=== PATIENT | male | born 1995 | race Hispanic/Latino ===

== ENCOUNTER 2019-11-08 22:25 | Inpatient (IN) | payer SELFPAY ==
[~2019-11-08] VITALS: Ht 167.6 cm; Wt 70.3 kg
[2019-11-08] MEDS ORDERED: ONDANSETRON HCL 4 MG/2 ML VIAL ONE (22:43)
[2019-11-08] MEDS ORDERED: KETOROLAC TROMETHAMINE 30MG/ML ONE (22:43)
[2019-11-08 22:56] LABS: BASOPHILS % (AUTO) 0.2 % (0.0-5.0); EOSINOPHILS % (AUTO) 1.6 % (0.0-8.0); HEMATOCRIT 44.9 % (42-54); MEAN CORPUSCULAR HEMOGLOBIN 30.3 pg (27.0-33.0); MEAN CORPUSCULAR VOLUME 86.7 fL (79-99); MONOCYTES % (AUTO) 11.2 % (3.0-13.0); NEUTROPHILS % (AUTO) 76.8 % (40.0-77.0); PLATELET COUNT (AUTO) 238 K/uL (130-400); RED BLOOD CELL COUNT(AUTO) 5.18 MIL/uL (4.50-6.20); RED CELL DISTRIBUTION WIDTH 11.9 % (11.0-15.5); WHITE BLOOD COUNT (AUTO) 12.9 K/uL (4.8-10.8)
[2019-11-08 23:07] LABS: APPEARANCE,URINE Clear (CLEAR); BILIRUBIN,URINE Negative (NEGATIVE); COLOR,URINE Yellow (YELLOW); GLUCOSE, URINE (UA) 250 mg/dL (NEGATIVE); KETONES,URINE 40 mg/dL (NEGATIVE); LEUKOCYTE ESTERASE ,URINE Trace (NEGATIVE); NITRATE,URINE Negative (NEGATIVE); OCCULT BLOOD,URINE Negative (NEGATIVE); PROTEIN,URINE POS 1+ mg/dL (NEGATIVE)
[2019-11-08 23:07] LABS: CREATININE 1.2 mg/dL (0.5-1.5); POTASSIUM 3.2 mmol/L (3.5-5.1)
[2019-11-08] MEDS ORDERED: MORPHINE SULFATE 4 MG/1ML SYG ONE (23:11)
[2019-11-08 23:12] LABS: ALBUMIN 4.5 g/dL (3.5-5.0); BILIRUBIN,TOTAL 0.9 mg/dL (0.2-1.0); TOTAL PROTEIN, SERUM 8.6 g/dL (6.0-8.3)
[2019-11-08] MEDS ORDERED: ZOSYN 3.375GM+NS 50ML 50 ML IV ONE (23:18)
[2019-11-08 23:22] LABS: BACTERIA,URINE None Seen /HPF (None Seen); MUCUS,URINE Few LPF (None Seen); RBC,URINE None Seen /HPF (0-1); SQUAMOUS EPITHELIAL CELL,UR Rare /HPF (0-2); YEAST,URINE BUDDING None Seen /HPF (None Seen)
[2019-11-08 23:37] LABS: AMPHET/METH SCREEN,URINE NEGATIVE (NEGATIVE); BARBITURATE SCREEN, URINE NEGATIVE (NEGATIVE); BENZODIAZEPINES SCREEN,URINE NEGATIVE (NEGATIVE); CANNABINOID SCREEN,URINE NEGATIVE (NEGATIVE); COCAINE SCREEN,URINE NEGATIVE (NEGATIVE); OPIATE SCREEN,URINE NEGATIVE (NEGATIVE); PHENCYCLIDINE SCREEN,URINE NEGATIVE (NEGATIVE)
[2019-11-09] VITALS (20 sets, daily range): BP systolic 87–121; BP diastolic 45–78
[2019-11-09] MEDS ORDERED: KETOROLAC TROMETHAMINE 30MG/ML ONE ×2 (00:45→10:13)
[2019-11-09] MEDS ORDERED: POTASSIUM CHLORIDE 20MEQ/100ML 100 ML IV PRN (00:45)
[2019-11-09] MEDS ORDERED: LIDOCAINE HCL-MPF 1% 2ML VIAL IV PRN (00:45)
[2019-11-09] MEDS ORDERED: POTASSIUM CHLORIDE 20MEQ/100ML 100 ML IV ONE (01:19)
[2019-11-09] MEDS ORDERED: ONDANSETRON HCL 4 MG/2 ML VIAL IVP PRN (03:00)
[2019-11-09] MEDS: MORPHINE SULFATE 4 MG/1ML SYG IVP PRN (03:23)
[2019-11-09] MEDS: SODIUM CHLORIDE 0.9% 1000ML 1,000 ML IV SCH ×4 (03:23→19:00)
[2019-11-09 03:41] LABS: EOSINOPHILS % (AUTO) 8.3 % (0.0-8.0); HEMATOCRIT 46.6 % (42-54); LYMPHOCYTES % (AUTO) 27.3 % (21.0-51.0); MEAN CORPUSCULAR HEMOGLOBIN 30.4 pg (27.0-33.0); MEAN CORPUSCULAR HGB CONC 34.3 g/dL (32.0-36.0); MEAN CORPUSCULAR VOLUME 88.6 fL (79-99); MONOCYTES % (AUTO) 8.3 % (3.0-13.0); NEUTROPHILS % (AUTO) 56.1 % (40.0-77.0); PLATELET COUNT (AUTO) 196 K/uL (130-400); RED BLOOD CELL COUNT(AUTO) 5.26 MIL/uL (4.50-6.20); WHITE BLOOD COUNT (AUTO) 1.2 K/uL (4.8-10.8)
[2019-11-09 03:54] LABS: INR 0.99 (0.85-1.15); PROTHROMBIN TIME 10.7 SEC (9.6-11.6)
[2019-11-09 04:02] LABS: ALBUMIN 3.5 g/dL (3.5-5.0); BILIRUBIN,TOTAL 1.4 mg/dL (0.2-1.0); CREATININE 1.3 mg/dL (0.5-1.5); POTASSIUM 3.7 mmol/L (3.5-5.1)
[2019-11-09 06:05] LABS: BAND NEUTROPHILS % (MANUAL) 40 % (0-2); LYMPHOCYTES % (MANUAL) 32 % (22-44); MAN.DIFF COMMENT-IMPRESSION MANUAL DIFFERENTIAL; METAMYELOCYTES % 2 % (0-0); MONOCYTES % (MANUAL) 8 % (2-9); REACTIVE LYMPHOCYTES 2 % (0-0); SEGMENTED NEUTROPHILS % 16 % (40-70)
[2019-11-09] MEDS ORDERED: ZOSYN 3.375GM+NS 50ML 50 ML IV ONE (06:25)
[2019-11-09] MEDS: ZOSYN 3.375GM+NS 50ML 50 ML IV SCH ×3 (06:27→23:51)
[2019-11-09] MEDS ORDERED: PROPOFOL 10 MG/ML 20ML VIAL IV ONE (09:35)
[2019-11-09] MEDS ORDERED: ONDANSETRON HCL 4 MG/2 ML VIAL ONE (09:35)
[2019-11-09] MEDS ORDERED: LIDOCAINE PF 2% 5ML ABBOJECT ONE (09:35)
[2019-11-09] MEDS ORDERED: ROCURONIUM 10MG/1ML SYR 10 MG/ML ML ONE (09:35)
[2019-11-09] MEDS ORDERED: SUCCINYLCHOLINE CHLORIDE 20 MG/ML 10 ML VIAL ONE (09:35)
[2019-11-09] MEDS ORDERED: MIDAZOLAM HCL 1 MG/ML 2ML VIAL ONE (09:35)
[2019-11-09] MEDS ORDERED: FENTANYL CITRATE PF 50 MCG/1 ML 5ML AMP IV ONE (09:36)
[2019-11-09] MEDS ORDERED: BUPIVACAINE/PF 0.5% 30ML VIAL ONE (09:37)
[2019-11-09] MEDS ORDERED: GLYCOPYRROLATE 1 MG/5 ML SYRINGE ONE (10:18)
[2019-11-09] MEDS ORDERED: NEOSTIGMINE 5MG/5ML SYR IV ONE (10:19)
--- NOTE | 2019-11-09 11:40 | NUR ---
POST OP NOTE.BACK FROM OR, AWAKE, ALERT,NO PAIN AT THIS TIME . BP90/58, HR 68, RR20, T.98.2 SAT97% RA. RESUME PREVIOUS ORDERS.
--- NOTE | 2019-11-09 11:40 | NUR ---
HAS 3 BAND AIDS TO SURG. ABD. CLEAN AND DRY, NO DRAINS .
[2019-11-09] MEDS: KETOROLAC TROMETHAMINE 30MG/ML IV PRN ×2 (12:44→20:48)
--- NOTE | 2019-11-09 12:45 | NUR ---
MEDICATED FOR PAIN NOW, ENCOURAGED TO COUGH AND DEEP BREATH.
[2019-11-09] MEDS: LACTATED RINGERS 1000ML 1,000 ML IV SCH ×2 (15:04→23:51)
--- NOTE | 2019-11-09 16:00 | NUR ---
HAS A LITTLE PAIN TO SURG. ABD. BUT DOES NOT PAIN MED. STATES WANTS TO WAIT UNTIL LATTER SO HE CAN SLEEP WELL. ALSO STATES HAS VOIDED WITHOUT ANY PROBLEMS.
--- NOTE | 2019-11-09 19:11 | NUR ---
INITIAL: Met w pt to discuss dcp. Pt mentions that prior to admission he was living w his friend. He is independent w ambulation and ADls. He does not own any DME or receive services. Per pt he feels safe and comfortable to [place] at [place]. Low income packet provided. CM to continue to follow and wait for Md recommendations. Addendum: 11/09/19 at 1913 by TJ NELSON Amended: Links added.
[2019-11-10 00:02] VITALS: BP 91/48
[2019-11-10] MEDS: SODIUM CHLORIDE 0.9% 1000ML 1,000 ML IV SCH (02:42)
[2019-11-10 03:51] VITALS: BP 88/45
[2019-11-10 05:17] LABS: BASOPHILS % (AUTO) 0.9 % (0.0-5.0); EOSINOPHILS % (AUTO) 0.2 % (0.0-8.0); HEMATOCRIT 38.5 % (42-54); LYMPHOCYTES % (AUTO) 5.9 % (21.0-51.0); MEAN CORPUSCULAR HEMOGLOBIN 30.5 pg (27.0-33.0); MEAN CORPUSCULAR VOLUME 89.5 fL (79-99); MONOCYTES % (AUTO) 1.8 % (3.0-13.0); NEUTROPHILS % (AUTO) 79.5 % (40.0-77.0); PLATELET COUNT (AUTO) 151 K/uL (130-400); RED CELL DISTRIBUTION WIDTH 12.6 % (11.0-15.5); WHITE BLOOD COUNT (AUTO) 11.1 K/uL (4.8-10.8)
[2019-11-10 05:29] LABS: CREATININE 1.3 mg/dL (0.5-1.5); POTASSIUM 3.8 mmol/L (3.5-5.1)
[2019-11-10 08:16] VITALS: BP 91/47
[2019-11-10] MEDS: MORPHINE SULFATE 4 MG/1ML SYG IVP PRN (09:23)
[2019-11-10] MEDS: ZOSYN 3.375GM+NS 50ML 50 ML IV SCH ×3 (09:25→23:23)
[2019-11-10] MEDS: LACTATED RINGERS 1000ML 1,000 ML IV SCH (09:29)
--- NOTE | 2019-11-10 10:30 | NUR ---
DR PRESTON here spoke with pt plan of care discussed with pt new orders given
[2019-11-10 15:01] VITALS: BP 99/65
[2019-11-10] MEDS ORDERED: IPRATROPIUM/ALBUTEROL SULFATE 3 ML SOLUTION IH PRN (15:45)
--- NOTE | 2019-11-10 16:00 | NUR ---
ORDER OBTAINED covid rapid test ordered obtained rapid and nonrapid and sent to lab Addendum: 11/10/19 at 1647 by TISHA LAINEZ RN RN Amended: Links added.
[2019-11-10 17:42] VITALS: BP 95/44
[2019-11-10 20:17] VITALS: BP 104/57
[2019-11-11 00:17] VITALS: BP 93/51
[2019-11-11 04:15] VITALS: BP 91/46
[2019-11-11] MEDS: KETOROLAC TROMETHAMINE 30MG/ML IV PRN (07:48)
[2019-11-11] MEDS: ZOSYN 3.375GM+NS 50ML 50 ML IV SCH ×3 (07:48→23:39)
[2019-11-11 07:50] LABS: BASOPHILS % (AUTO) 0.6 % (0.0-5.0); EOSINOPHILS % (AUTO) 0.4 % (0.0-8.0); HEMATOCRIT 32.9 % (42-54); LYMPHOCYTES % (AUTO) 6.4 % (21.0-51.0); MEAN CORPUSCULAR HEMOGLOBIN 30.8 pg (27.0-33.0); MEAN CORPUSCULAR HGB CONC 34.3 g/dL (32.0-36.0); MEAN CORPUSCULAR VOLUME 89.6 fL (79-99); MONOCYTES % (AUTO) 2.4 % (3.0-13.0); NEUTROPHILS % (AUTO) 89.9 % (40.0-77.0); PLATELET COUNT (AUTO) 136 K/uL (130-400); RED BLOOD CELL COUNT(AUTO) 3.67 MIL/uL (4.50-6.20); RED CELL DISTRIBUTION WIDTH 12.6 % (11.0-15.5); WHITE BLOOD COUNT (AUTO) 14.4 K/uL (4.8-10.8)
[2019-11-11 08:01] LABS: CREATININE 1.1 mg/dL (0.5-1.5); POTASSIUM 3.1 mmol/L (3.5-5.1)
[2019-11-11 08:38] VITALS: BP 88/40
[2019-11-11 11:19] VITALS: BP 92/48
[2019-11-11 17:11] VITALS: BP 106/60
[2019-11-11 19:48] VITALS: BP 107/54
[2019-11-11] MEDS: MORPHINE SULFATE 4 MG/1ML SYG IVP PRN (20:29)
[2019-11-12] VITALS (7 sets, daily range): BP systolic 92–119; BP diastolic 53–71
[2019-11-12] MEDS ORDERED: ACETAMINOPHEN 325 MG TAB ONE (00:26)
[2019-11-12] MEDS ORDERED: ACETAMINOPHEN 325 MG TAB PO ONE (00:30)
--- NOTE | 2019-11-12 06:10 | NUR ---
received report from oniel cochran nurse, assumed care, head to toe assessment done, lung ibarra clear, abdomen soft non tender, timed medication given see emar, pt issue temperature 102.5 then 100.2 now 99f, 24 cc done, safety maintained.
[2019-11-12] MEDS: ZOSYN 3.375GM+NS 50ML 50 ML IV SCH ×2 (08:12→15:02)
[2019-11-12] MEDS ORDERED: LIDOCAINE HCL-MPF 1% 2ML VIAL IV PRN (15:30)
[2019-11-12] MEDS ORDERED: ACETAMINOPHEN 325 MG TAB PO PRN (15:30)
[2019-11-12] MEDS ORDERED: POTASSIUM CHLORIDE 10% ELIXIR 20 MEQ/15 ML UDCUP PO PRN (15:30)
[2019-11-12] MEDS ORDERED: POTASSIUM CHLORIDE 20MEQ/100ML 100 ML IV PRN (15:30)
[2019-11-12] MEDS: POTASSIUM CHLORIDE 20 MEQ ERTAB PO PRN ×2 (15:47→20:56)
[2019-11-13] MEDS: ZOSYN 3.375GM+NS 50ML 50 ML IV SCH ×3 (00:04→15:17)
[2019-11-13 03:34] VITALS: BP 112/63
[2019-11-13 04:31] LABS: BASOPHILS % (AUTO) 0.7 % (0.0-5.0); EOSINOPHILS % (AUTO) 1.2 % (0.0-8.0); HEMATOCRIT 39.3 % (42-54); LYMPHOCYTES % (AUTO) 12.2 % (21.0-51.0); MEAN CORPUSCULAR HEMOGLOBIN 29.4 pg (27.0-33.0); MEAN CORPUSCULAR HGB CONC 33.3 g/dL (32.0-36.0); MEAN CORPUSCULAR VOLUME 88.1 fL (79-99); MONOCYTES % (AUTO) 12.9 % (3.0-13.0); NEUTROPHILS % (AUTO) 71.4 % (40.0-77.0); PLATELET COUNT (AUTO) 179 K/uL (130-400); RED BLOOD CELL COUNT(AUTO) 4.46 MIL/uL (4.50-6.20); RED CELL DISTRIBUTION WIDTH 12.6 % (11.0-15.5); WHITE BLOOD COUNT (AUTO) 10.4 K/uL (4.8-10.8)
[2019-11-13 04:55] LABS: ALBUMIN 2.3 g/dL (3.5-5.0); CREATININE 0.9 mg/dL (0.5-1.5); POTASSIUM 3.2 mmol/L (3.5-5.1)
[2019-11-13] MEDS: POTASSIUM CHLORIDE 20 MEQ ERTAB PO PRN ×3 (06:49→11:56)
[2019-11-13 08:00] VITALS: BP 121/73
[2019-11-13 12:00] VITALS: BP 127/78
[2019-11-13 16:00] VITALS: BP 122/72
[2019-11-13] MEDS ORDERED: VANCOMYCIN PROTOCOL PER PHARMACY IV SCH (17:45)
[2019-11-13] MEDS ORDERED: POTASSIUM CHLORIDE 20 MEQ ERTAB PO SCH (18:15)
[2019-11-13] MEDS ORDERED: MORPHINE SULFATE 2 MG/ML 1ML SYG IVP PRN (19:00)
[2019-11-13 20:53] VITALS: BP 126/80
[2019-11-13] MEDS: VANCOMYCIN 1GM+NS 250ML 250 ML IV SCH (21:15)
[2019-11-14] MEDS: ZOSYN 3.375GM+NS 50ML 50 ML IV SCH ×3 (00:10→17:24)
[2019-11-14 00:25] VITALS: BP 118/66
[2019-11-14 03:52] VITALS: BP 116/73
[2019-11-14 05:03] LABS: BASOPHILS % (AUTO) 0.6 % (0.0-5.0); EOSINOPHILS % (AUTO) 1.6 % (0.0-8.0); HEMATOCRIT 39.1 % (42-54); MEAN CORPUSCULAR HEMOGLOBIN 29.7 pg (27.0-33.0); MEAN CORPUSCULAR VOLUME 87.3 fL (79-99); MONOCYTES % (AUTO) 10.8 % (3.0-13.0); NEUTROPHILS % (AUTO) 71.5 % (40.0-77.0); PLATELET COUNT (AUTO) 220 K/uL (130-400); RED BLOOD CELL COUNT(AUTO) 4.48 MIL/uL (4.50-6.20); RED CELL DISTRIBUTION WIDTH 12.5 % (11.0-15.5); WHITE BLOOD COUNT (AUTO) 11.5 K/uL (4.8-10.8)
[2019-11-14 05:30] LABS: ALBUMIN 2.4 g/dL (3.5-5.0); BILIRUBIN,TOTAL 0.8 mg/dL (0.2-1.0); CREATININE 0.9 mg/dL (0.5-1.5); POTASSIUM 3.2 mmol/L (3.5-5.1); TOTAL PROTEIN, SERUM 7.1 g/dL (6.0-8.3)
[2019-11-14 07:30] VITALS: BP 120/72
[2019-11-14] MEDS: VANCOMYCIN 1GM+NS 250ML 250 ML IV SCH (08:40)
[2019-11-14] MEDS: POTASSIUM CHLORIDE 20 MEQ ERTAB PO PRN ×3 (08:40→12:09)
[2019-11-14 11:00] VITALS: BP 125/70
[2019-11-14] MEDS ORDERED: IOHEXOL-350 75 ML VIAL IV ONE (14:41)
[2019-11-14 16:00] VITALS: BP 123/72
[2019-11-14] MEDS ORDERED: COMPOUND IV REFRIGERATED 1 EACH IVSOLN MISC PRN (19:45)
[2019-11-14 20:00] VITALS: BP 116/73
[2019-11-14] MEDS: VANCOMYCIN 1.5 GM in SODIUM CHLORIDE 0.9% 250 ML IV SCH (22:58)
[2019-11-15] VITALS: BP 108/69
[2019-11-15] MEDS: ZOSYN 3.375GM+NS 50ML 50 ML IV SCH ×4 (02:52→23:12)
[2019-11-15 04:00] VITALS: BP 111/67
[2019-11-15 04:40] LABS: BASOPHILS % (AUTO) 0.5 % (0.0-5.0); HEMATOCRIT 37.9 % (42-54); LYMPHOCYTES % (AUTO) 12.6 % (21.0-51.0); MEAN CORPUSCULAR HEMOGLOBIN 29.7 pg (27.0-33.0); MEAN CORPUSCULAR VOLUME 87.3 fL (79-99); MONOCYTES % (AUTO) 8.8 % (3.0-13.0); NEUTROPHILS % (AUTO) 73.2 % (40.0-77.0); PLATELET COUNT (AUTO) 281 K/uL (130-400); RED BLOOD CELL COUNT(AUTO) 4.34 MIL/uL (4.50-6.20); RED CELL DISTRIBUTION WIDTH 12.3 % (11.0-15.5); WHITE BLOOD COUNT (AUTO) 14.2 K/uL (4.8-10.8)
[2019-11-15 05:02] LABS: ALBUMIN 2.4 g/dL (3.5-5.0); BILIRUBIN,TOTAL 0.8 mg/dL (0.2-1.0); CREATININE 0.9 mg/dL (0.5-1.5); POTASSIUM 3.5 mmol/L (3.5-5.1); TOTAL PROTEIN, SERUM 7.1 g/dL (6.0-8.3)
[2019-11-15 08:00] VITALS: BP 126/69
[2019-11-15] MEDS: VANCOMYCIN 1.5 GM in SODIUM CHLORIDE 0.9% 250 ML IV SCH ×2 (08:00→21:40)
[2019-11-15 11:00] VITALS: BP 121/73
[2019-11-15 15:00] LABS: INR 0.99 (0.85-1.15); PARTIAL THROMBOPLASTIN TIME 25.4 SEC (26.3-35.5); PROTHROMBIN TIME 10.7 SEC (9.6-11.6)
--- NOTE | 2019-11-15 17:20 | NUR ---
CONSENT consent signed translated in cuban by Elizabeth Malin RN pt voices understanding
[2019-11-15] MEDS ORDERED: AMLODIPINE BESYLATE 5 MG TAB PO SCH (18:15)
--- NOTE | 2019-11-15 18:35 | NUR ---
DR MOHAN Galeana called gave orders for pt to have repeat CT scan with oral contrast pt needs an empty bladder prior to test pt either can empty bladder or do an in and out cath
[2019-11-15 20:01] VITALS: BP 120/68
--- NOTE | 2019-11-15 20:08 | NUR ---
[address] Lindsay pt not a canidate for perc drain abscess to close to bowel loopes. Dr Lindsay was to speak with Dr Galeana. Nile rn
[2019-11-15] MEDS ORDERED: DIATR MEGLU/DIATRIZOATE SODIUM 30 ML BOTTLE ONE (20:28)
[2019-11-15 23:33] VITALS: BP 124/71
[2019-11-16 03:28] VITALS: BP 123/72
[2019-11-16 05:44] LABS: BASOPHILS % (AUTO) 0.4 % (0.0-5.0); EOSINOPHILS % (AUTO) 0.9 % (0.0-8.0); HEMATOCRIT 41.4 % (42-54); LYMPHOCYTES % (AUTO) 9.5 % (21.0-51.0); MEAN CORPUSCULAR HEMOGLOBIN 29.8 pg (27.0-33.0); MEAN CORPUSCULAR HGB CONC 34.1 g/dL (32.0-36.0); MEAN CORPUSCULAR VOLUME 87.5 fL (79-99); MONOCYTES % (AUTO) 8.1 % (3.0-13.0); NEUTROPHILS % (AUTO) 79.2 % (40.0-77.0); PLATELET COUNT (AUTO) 355 K/uL (130-400); RED BLOOD CELL COUNT(AUTO) 4.73 MIL/uL (4.50-6.20); RED CELL DISTRIBUTION WIDTH 12.1 % (11.0-15.5); WHITE BLOOD COUNT (AUTO) 18.1 K/uL (4.8-10.8)
[2019-11-16 06:04] LABS: ALBUMIN 2.5 g/dL (3.5-5.0); CREATININE 1.4 mg/dL (0.5-1.5); POTASSIUM 3.6 mmol/L (3.5-5.1); TOTAL PROTEIN, SERUM 7.2 g/dL (6.0-8.3)
[2019-11-16 08:00] VITALS: BP 122/71
[2019-11-16] MEDS: VANCOMYCIN 1.5 GM in SODIUM CHLORIDE 0.9% 250 ML IV SCH (08:00)
[2019-11-16] MEDS: ZOSYN 3.375GM+NS 50ML 50 ML IV SCH ×3 (08:31→22:23)
--- NOTE | 2019-11-16 08:33 | NUR ---
PAIN states pain rates a 4 abd pain denies the need for medication at this time Addendum: 11/16/19 at 0836 by TISHA LAINEZ RN RN Amended: Links added.
[2019-11-16 11:00] VITALS: BP 122/77
[2019-11-16] MEDS: FLUCONAZOLE 200 MG/NS 100 ML 100 ML IV SCH (14:18)
[2019-11-16] MEDS: METRONIDAZOLE 500MG/100ML BAG 100 ML IV SCH ×2 (14:19→22:23)
[2019-11-16 16:00] VITALS: BP 131/70
[2019-11-16] MEDS: HYDROCODONE/ACETAMINOPHEN 5/325 MG TAB PO PRN (16:23)
[2019-11-16 19:43] VITALS: BP 127/70
[2019-11-17 00:10] VITALS: BP 121/61
[2019-11-17 04:11] VITALS: BP 114/68
[2019-11-17] MEDS: METRONIDAZOLE 500MG/100ML BAG 100 ML IV SCH ×3 (05:47→21:30)
[2019-11-17] MEDS: ZOSYN 3.375GM+NS 50ML 50 ML IV SCH ×2 (06:49→14:24)
[2019-11-17 08:00] VITALS: BP 119/67
[2019-11-17 10:22] LABS: BASOPHILS % (AUTO) 0.4 % (0.0-5.0); EOSINOPHILS % (AUTO) 0.8 % (0.0-8.0); HEMATOCRIT 38.1 % (42-54); LYMPHOCYTES % (AUTO) 6.7 % (21.0-51.0); MEAN CORPUSCULAR HGB CONC 33.6 g/dL (32.0-36.0); MEAN CORPUSCULAR VOLUME 89.4 fL (79-99); MONOCYTES % (AUTO) 5.7 % (3.0-13.0); NEUTROPHILS % (AUTO) 85.3 % (40.0-77.0); PLATELET COUNT (AUTO) 422 K/uL (130-400); RED BLOOD CELL COUNT(AUTO) 4.26 MIL/uL (4.50-6.20); RED CELL DISTRIBUTION WIDTH 12.5 % (11.0-15.5); WHITE BLOOD COUNT (AUTO) 17.8 K/uL (4.8-10.8)
[2019-11-17 10:38] LABS: ALBUMIN 2.4 g/dL (3.5-5.0); BILIRUBIN,TOTAL 0.6 mg/dL (0.2-1.0); CREATININE 1.9 mg/dL (0.5-1.5); POTASSIUM 3.4 mmol/L (3.5-5.1); TOTAL PROTEIN, SERUM 7.3 g/dL (6.0-8.3)
[2019-11-17 11:36] VITALS: BP 116/66
[2019-11-17] MEDS: FLUCONAZOLE 200 MG/NS 100 ML 100 ML IV SCH (12:05)
[2019-11-17 16:00] VITALS: BP 118/68
[2019-11-17] MEDS: CEFEPIME HCL 2 GM VIAL IVP SCH (18:11)
[2019-11-17 20:00] VITALS: BP 126/67
[2019-11-18] VITALS (7 sets, daily range): BP systolic 115–122; BP diastolic 53–69
[2019-11-18] MEDS: CEFEPIME HCL 2 GM VIAL IVP SCH ×2 (04:43→18:13)
[2019-11-18] MEDS: METRONIDAZOLE 500MG/100ML BAG 100 ML IV SCH ×3 (04:43→21:56)
[2019-11-18 04:59] LABS: BASOPHILS % (AUTO) 0.4 % (0.0-5.0); EOSINOPHILS % (AUTO) 0.9 % (0.0-8.0); HEMATOCRIT 37.1 % (42-54); LYMPHOCYTES % (AUTO) 7.9 % (21.0-51.0); MEAN CORPUSCULAR HEMOGLOBIN 30.1 pg (27.0-33.0); MEAN CORPUSCULAR VOLUME 88.8 fL (79-99); NEUTROPHILS % (AUTO) 83.7 % (40.0-77.0); PLATELET COUNT (AUTO) 467 K/uL (130-400); RED BLOOD CELL COUNT(AUTO) 4.18 MIL/uL (4.50-6.20); RED CELL DISTRIBUTION WIDTH 12.5 % (11.0-15.5); WHITE BLOOD COUNT (AUTO) 17.8 K/uL (4.8-10.8)
[2019-11-18 05:18] LABS: ALBUMIN 2.5 g/dL (3.5-5.0); BILIRUBIN,TOTAL 0.4 mg/dL (0.2-1.0); CREATININE 1.8 mg/dL (0.5-1.5); POTASSIUM 3.6 mmol/L (3.5-5.1); TOTAL PROTEIN, SERUM 7.3 g/dL (6.0-8.3)
--- NOTE | 2019-11-18 10:53 | NUR ---
RE: DRAINAGE CATHETER PLACEMENT PATIENT SCHEDULED FOR DRAINAGE CATHETER PLACEMENT S/P LAP APPENDECTOMY. IMAGES REVIEWED BY DR Eleanor ONEILL. DR SOTO STATES HE SPOKE WITH DR Anh PRESTON ABOUT THIS CASE OVER THE WEEKEND. THERE IS NO SAFE ACCESS TO FLUID COLLECTION BY RADIOLOGY. CANCEL PROCEDURE. Florentin WALLS LVN NOTIFIED OF PROCEDURE OUTCOME. SPOKE WITH LASHAY AYALA REGARDING PROCEDURE OUTCOME.
--- NOTE | 2019-11-18 11:03 | NUR ---
SPOKE WITH CASE MANAGEMENT SOCIAL WORKER STATES DR SOTO SPOKE WITH DR PRESTON ABOUT THIS CASE OVER THE WEEKEND AND THERE IS NO SAFE ACCESS TO FLUID COLLECTION BY RADIOLOGY. NUMBER GIVEN TO REACH JOSÉ AYALA TO EXPLAIN CANCELLATION OF PROCEDURE.
[2019-11-18] MEDS: FLUCONAZOLE 200 MG/NS 100 ML 100 ML IV SCH (12:31)
[2019-11-19 04:06] VITALS: BP 112/59
[2019-11-19 04:24] LABS: BASOPHILS % (AUTO) 0.4 % (0.0-5.0); EOSINOPHILS % (AUTO) 1.4 % (0.0-8.0); HEMATOCRIT 37.6 % (42-54); LYMPHOCYTES % (AUTO) 11.3 % (21.0-51.0); MEAN CORPUSCULAR HEMOGLOBIN 30.1 pg (27.0-33.0); MEAN CORPUSCULAR HGB CONC 33.5 g/dL (32.0-36.0); MEAN CORPUSCULAR VOLUME 89.7 fL (79-99); MONOCYTES % (AUTO) 6.4 % (3.0-13.0); NEUTROPHILS % (AUTO) 79.7 % (40.0-77.0); PLATELET COUNT (AUTO) 504 K/uL (130-400); RED BLOOD CELL COUNT(AUTO) 4.19 MIL/uL (4.50-6.20); RED CELL DISTRIBUTION WIDTH 12.5 % (11.0-15.5); WHITE BLOOD COUNT (AUTO) 16.1 K/uL (4.8-10.8)
[2019-11-19 04:41] LABS: ALBUMIN 2.6 g/dL (3.5-5.0); BILIRUBIN,TOTAL 0.4 mg/dL (0.2-1.0); CREATININE 1.9 mg/dL (0.5-1.5); POTASSIUM 3.8 mmol/L (3.5-5.1); TOTAL PROTEIN, SERUM 7.5 g/dL (6.0-8.3)
[2019-11-19] MEDS ORDERED: SODIUM CHLORIDE 0.9% 500ML 500 ML IV ONE (04:52)
[2019-11-19] MEDS: CEFEPIME HCL 2 GM VIAL IVP SCH ×2 (04:56→16:42)
[2019-11-19] MEDS: METRONIDAZOLE 500MG/100ML BAG 100 ML IV SCH ×3 (05:02→22:09)
[2019-11-19 08:14] LABS: HEPATITIS A ANTIBODY IGM Negative (Negative); HEPATITIS B CORE IGM Negative (Negative); HEPATITIS Bs ANTIGEN SCREEN P Negative (Negative)
[2019-11-19 08:53] VITALS: BP 115/65
[2019-11-19 11:12] VITALS: BP 117/67
[2019-11-19] MEDS: FLUCONAZOLE 200 MG/NS 100 ML 100 ML IV SCH (12:57)
[2019-11-19 17:21] VITALS: BP 129/68
[2019-11-19 19:29] VITALS: BP 128/70
[2019-11-19 23:31] VITALS: BP 117/65
[2019-11-20 03:39] VITALS: BP 110/60
[2019-11-20] MEDS: CEFEPIME HCL 2 GM VIAL IVP SCH ×2 (04:09→17:02)
[2019-11-20 04:17] LABS: BASOPHILS % (AUTO) 0.8 % (0.0-5.0); EOSINOPHILS % (AUTO) 1.4 % (0.0-8.0); HEMATOCRIT 38.1 % (42-54); LYMPHOCYTES % (AUTO) 14.8 % (21.0-51.0); MEAN CORPUSCULAR HEMOGLOBIN 29.7 pg (27.0-33.0); MEAN CORPUSCULAR HGB CONC 33.3 g/dL (32.0-36.0); MEAN CORPUSCULAR VOLUME 89.2 fL (79-99); MONOCYTES % (AUTO) 7.4 % (3.0-13.0); NEUTROPHILS % (AUTO) 74.8 % (40.0-77.0); PLATELET COUNT (AUTO) 546 K/uL (130-400); RED BLOOD CELL COUNT(AUTO) 4.27 MIL/uL (4.50-6.20); RED CELL DISTRIBUTION WIDTH 12.4 % (11.0-15.5); WHITE BLOOD COUNT (AUTO) 15.9 K/uL (4.8-10.8)
[2019-11-20 04:46] LABS: ALBUMIN 2.7 g/dL (3.5-5.0); BILIRUBIN,TOTAL 0.4 mg/dL (0.2-1.0); CREATININE 1.7 mg/dL (0.5-1.5); POTASSIUM 3.9 mmol/L (3.5-5.1); TOTAL PROTEIN, SERUM 7.6 g/dL (6.0-8.3)
--- NOTE | 2019-11-20 05:00 | NUR ---
COMFORT No complaints of any abdominal pain, slept well overnight. No fever, no nausea nor vomiting. No complaints of pain.
[2019-11-20] MEDS: METRONIDAZOLE 500MG/100ML BAG 100 ML IV SCH ×3 (05:05→21:04)
--- NOTE | 2019-11-20 06:00 | NUR ---
PATIENT UPDATE Keeping npo post mn,pending percutaneous drain placement by Interventional Radiology.
[2019-11-20 09:45] VITALS: BP 117/63
[2019-11-20 11:36] VITALS: BP 121/63
[2019-11-20] MEDS: FLUCONAZOLE 200 MG/NS 100 ML 100 ML IV SCH (11:46)
[2019-11-20 16:44] VITALS: BP 118/69
[2019-11-20 20:00] VITALS: BP 121/70
[2019-11-20 23:44] VITALS: BP 120/68
[2019-11-21] VITALS (10 sets, daily range): BP systolic 108–153; BP diastolic 60–88
[2019-11-21] MEDS: CEFEPIME HCL 2 GM VIAL IVP SCH ×2 (04:34→16:04)
[2019-11-21] MEDS: METRONIDAZOLE 500MG/100ML BAG 100 ML IV SCH ×3 (05:13→21:04)
[2019-11-21 05:15] LABS: BASOPHILS % (AUTO) 0.8 % (0.0-5.0); EOSINOPHILS % (AUTO) 1.2 % (0.0-8.0); HEMATOCRIT 37.8 % (42-54); LYMPHOCYTES % (AUTO) 16.9 % (21.0-51.0); MEAN CORPUSCULAR HEMOGLOBIN 30.3 pg (27.0-33.0); MEAN CORPUSCULAR HGB CONC 33.9 g/dL (32.0-36.0); MEAN CORPUSCULAR VOLUME 89.4 fL (79-99); MONOCYTES % (AUTO) 7.6 % (3.0-13.0); NEUTROPHILS % (AUTO) 72.7 % (40.0-77.0); PLATELET COUNT (AUTO) 597 K/uL (130-400); RED BLOOD CELL COUNT(AUTO) 4.23 MIL/uL (4.50-6.20); RED CELL DISTRIBUTION WIDTH 12.3 % (11.0-15.5); WHITE BLOOD COUNT (AUTO) 16.2 K/uL (4.8-10.8)
[2019-11-21 05:28] LABS: CREATININE 1.6 mg/dL (0.5-1.5)
[2019-11-21 05:34] LABS: INR 1.13 (0.85-1.15); PROTHROMBIN TIME 12.1 SEC (9.6-11.6)
[2019-11-21] MEDS ORDERED: FENTANYL CITRATE PF 50 MCG/1 ML 2ML VIAL ONE (10:51)
--- NOTE | 2019-11-21 11:15 | NUR ---
CT GD DRAINAGE CATHETER PLACEMENT PROCEDURE PERFORMED BY DR Vonnie MERA. PUNCTURE SITE RT BUTTOCK. PATIENT TOLERATED PROCEDURE WELL. 8FR PIGTAIL CATHETER PLACED TO PELVIC ABSCESS AND CONNECTED TO DRAINAGE BAG. CATHETER SUTURED IN PLACE AND SECURED WITH STAY-FIX DRESSING. SPECIMEN COLLECTED AND SENT TO LAB. END OF PROCEDURE AT 1055. REPORT GIVEN TO Fariha CERNA RN AND PATIENT TRANSPORTED TO [facility] VIA BED AT 1115. AAO X3 WITH NO C/O PAIN.
--- NOTE | 2019-11-21 11:22 | NUR ---
RDSCREEN - LOS X 13 Pt admitted with acute appendicitis. S/p Lap Appendectomy. S/p CT on 11/14 due to continued abdominal pain revealed Abscess. Pt currently NPO pending drainage by radiology today. No known medical history. Fair PO intake at 50-75%. Lbm 11/19. Recommend advance diet as tolerated post procedure Recommend 500mg Vitamin QD and MVI supplementation daily. RD to continue to monitor. Please notify as additional nutrition concerns arise. Thank you.
[2019-11-21] MEDS: FLUCONAZOLE 200 MG/NS 100 ML 100 ML IV SCH (12:01)
[2019-11-21] MEDS: HYDROCODONE/ACETAMINOPHEN 5/325 MG TAB PO PRN (21:04)
[2019-11-22] VITALS (7 sets, daily range): BP systolic 100–125; BP diastolic 63–72
[2019-11-22] MEDS: CEFEPIME HCL 2 GM VIAL IVP SCH ×2 (05:15→17:00)
[2019-11-22 06:39] LABS: EOSINOPHILS % (AUTO) 1.7 % (0.0-8.0); HEMATOCRIT 38.8 % (42-54); LYMPHOCYTES % (AUTO) 16.6 % (21.0-51.0); MEAN CORPUSCULAR HEMOGLOBIN 29.5 pg (27.0-33.0); MEAN CORPUSCULAR VOLUME 89.4 fL (79-99); MONOCYTES % (AUTO) 8.8 % (3.0-13.0); NEUTROPHILS % (AUTO) 71.1 % (40.0-77.0); PLATELET COUNT (AUTO) 581 K/uL (130-400); RED BLOOD CELL COUNT(AUTO) 4.34 MIL/uL (4.50-6.20); RED CELL DISTRIBUTION WIDTH 12.1 % (11.0-15.5); WHITE BLOOD COUNT (AUTO) 15.4 K/uL (4.8-10.8)
[2019-11-22] MEDS: METRONIDAZOLE 500MG/100ML BAG 100 ML IV SCH ×3 (06:39→21:30)
--- NOTE | 2019-11-22 08:00 | NUR ---
AM SHIFT ASSESSMENT.
--- NOTE | 2019-11-22 09:30 | NUR ---
GD DRAINAGE CATH IN PLACE, FLUSHED WITH 10 ML NS, NO RESISTANT NOTED.
--- NOTE | 2019-11-22 10:00 | NUR ---
DR. PRESTON IN TO SEE PT. NO NEW ORDERS.
[2019-11-22] MEDS: FLUCONAZOLE 200 MG/NS 100 ML 100 ML IV SCH (13:21)
--- NOTE | 2019-11-22 14:55 | NUR ---
NEW IV START, 20G RT. INNER FOREARM.
[2019-11-23] MEDS ORDERED: SODIUM CHLORIDE 0.9% 50 ML IV ONE (03:53)
[2019-11-23] MEDS ORDERED: SODIUM CHLORIDE 0.9% 100 ML IV ONE (03:54)
[2019-11-23 04:00] VITALS: BP 113/75
[2019-11-23] MEDS: CEFEPIME HCL 2 GM VIAL IVP SCH ×2 (04:00→15:51)
[2019-11-23] MEDS: METRONIDAZOLE 500MG/100ML BAG 100 ML IV SCH ×3 (05:02→22:13)
[2019-11-23 06:23] LABS: EOSINOPHILS % (AUTO) 1.9 % (0.0-8.0); HEMATOCRIT 38.4 % (42-54); LYMPHOCYTES % (AUTO) 17.8 % (21.0-51.0); MEAN CORPUSCULAR HEMOGLOBIN 29.5 pg (27.0-33.0); MEAN CORPUSCULAR HGB CONC 33.1 g/dL (32.0-36.0); MEAN CORPUSCULAR VOLUME 89.3 fL (79-99); MONOCYTES % (AUTO) 10.9 % (3.0-13.0); NEUTROPHILS % (AUTO) 67.6 % (40.0-77.0); PLATELET COUNT (AUTO) 548 K/uL (130-400); RED CELL DISTRIBUTION WIDTH 12.3 % (11.0-15.5); WHITE BLOOD COUNT (AUTO) 13.4 K/uL (4.8-10.8)
[2019-11-23 06:42] LABS: CREATININE 1.6 mg/dL (0.5-1.5)
[2019-11-23 08:00] VITALS: BP 117/70
[2019-11-23] MEDS ORDERED: SODIUM CHLORIDE 0.9% 250 ML IV ONE (11:26)
[2019-11-23] MEDS: FLUCONAZOLE 200 MG/NS 100 ML 100 ML IV SCH (11:36)
[2019-11-23 11:57] VITALS: BP 116/69
[2019-11-23 16:00] VITALS: BP 115/72
[2019-11-23 19:49] VITALS: BP 124/69
[2019-11-24] VITALS (7 sets, daily range): BP systolic 112–126; BP diastolic 63–74
[2019-11-24] MEDS: CEFEPIME HCL 2 GM VIAL IVP SCH ×2 (04:06→16:37)
[2019-11-24] MEDS: METRONIDAZOLE 500MG/100ML BAG 100 ML IV SCH ×3 (05:41→21:03)
[2019-11-24 05:51] LABS: BASOPHILS % (AUTO) 1.2 % (0.0-5.0); EOSINOPHILS % (AUTO) 1.5 % (0.0-8.0); HEMATOCRIT 40.2 % (42-54); LYMPHOCYTES % (AUTO) 15.2 % (21.0-51.0); MEAN CORPUSCULAR HEMOGLOBIN 29.9 pg (27.0-33.0); MEAN CORPUSCULAR HGB CONC 33.3 g/dL (32.0-36.0); MEAN CORPUSCULAR VOLUME 89.7 fL (79-99); MONOCYTES % (AUTO) 8.3 % (3.0-13.0); NEUTROPHILS % (AUTO) 72.8 % (40.0-77.0); PLATELET COUNT (AUTO) 595 K/uL (130-400); RED BLOOD CELL COUNT(AUTO) 4.48 MIL/uL (4.50-6.20); RED CELL DISTRIBUTION WIDTH 12.1 % (11.0-15.5); WHITE BLOOD COUNT (AUTO) 12.3 K/uL (4.8-10.8)
[2019-11-24 06:07] LABS: CREATININE 1.5 mg/dL (0.5-1.5); POTASSIUM 3.7 mmol/L (3.5-5.1)
[2019-11-24] MEDS: FLUCONAZOLE 200 MG/NS 100 ML 100 ML IV SCH (12:19)
[2019-11-24] MEDS ORDERED: IOHEXOL-350 75 ML VIAL IV ONE (15:57)
[2019-11-25] MEDS: CEFEPIME HCL 2 GM VIAL IVP SCH (03:44)
[2019-11-25 03:52] VITALS: BP 111/66
[2019-11-25 08:15] VITALS: BP 109/69
[2019-11-25 12:07] VITALS: BP 119/73
[2019-11-25] MEDS: FLUCONAZOLE 200 MG/NS 100 ML 100 ML IV SCH (12:16)
[2019-11-25] MEDS: METRONIDAZOLE 500MG/100ML BAG 100 ML IV SCH ×3 (14:00→21:51)
[2019-11-25 16:29] VITALS: BP 112/68
[2019-11-25 19:54] VITALS: BP 112/67
--- NOTE | 2019-11-25 21:51 | NUR ---
MEDS SHIFT ASSESSMENT DONE, PLEASE REFER TO CHART. DUE MEDS ADMINISTERED, TOLERATED WELL. FLUSHED PERCUTANEOUS DRAIN WITH 10CC OF SALINE. KEPT COMFORTABLE IN BED. CALL LIGHT WITHIN REACH. WILL MONITOR PT. Addendum: 11/26/19 at 0231 by IAN PENA RN RN Amended: Links added.
[2019-11-25 23:09] VITALS: BP 99/58
--- NOTE | 2019-11-26 02:00 | NUR ---
ROUNDS PT RESTING WELL, FAIRLY ASLEEP. NO DISTRESS NOTED. KEPT UNDISTURBED FOR NOW. WILL CONTINUE TO MONITOR.
[2019-11-26 03:33] VITALS: BP 105/61
[2019-11-26] MEDS: CEFEPIME HCL 2 GM VIAL IVP SCH ×2 (03:44→16:44)
[2019-11-26] MEDS: METRONIDAZOLE 500MG/100ML BAG 100 ML IV SCH (05:06)
--- NOTE | 2019-11-26 05:06 | NUR ---
MEDS PT AWAKENED FOR DUE MEDS. DENIES ANY CONCERNS AT THIS TIME. NO DISTRESS NOTED. KEPT COMFORTABLE. FOR MORE CARE.
--- NOTE | 2019-11-26 07:15 | NUR ---
MD DR PRESTON IN TO SEE PT. NEW ORDERS GIVEN, PLEASE REFER TO CHART. ENDORSED PT TO INCOMING NURSE, BRIDGET MITCHELL. FOR MORE CARE.
[2019-11-26 08:00] VITALS: BP 126/72
[2019-11-26 11:00] VITALS: BP 107/66
[2019-11-26] MEDS ORDERED: IOHEXOL-350 75 ML VIAL IV ONE (11:50)
[2019-11-26] MEDS: FLUCONAZOLE 200 MG/NS 100 ML 100 ML IV SCH (14:55)
[2019-11-26 17:00] VITALS: BP 117/70
[2019-11-26 19:58] VITALS: BP 117/70
[2019-11-26 23:38] VITALS: BP 115/68
[2019-11-27 03:48] VITALS: BP 111/66
[2019-11-27] MEDS: CEFEPIME HCL 2 GM VIAL IVP SCH ×2 (04:37→15:57)
[2019-11-27 07:59] VITALS: BP 110/67
[2019-11-27] MEDS: FLUCONAZOLE 200 MG/NS 100 ML 100 ML IV SCH (11:04)
[2019-11-27 11:48] VITALS: BP 121/73
[2019-11-27 16:00] VITALS: BP 108/64
[2019-11-27 20:00] VITALS: BP 116/71
--- NOTE | 2019-11-27 20:00 | NUR ---
assessment note patient awake,alert, ox3, no sob,no c/o pain at this time, left arm 20 gauge with redness,discontinue iv left forearm apply 2x2 and tape, restart iv right forearm with 20 gauge catheter, attempt x1 and successful, tolerated well, teach patient plan of care and expected outcome, patient verbalizes understanding via teach back
[2019-11-28] VITALS: BP 115/72
[2019-11-28 04:00] VITALS: BP 109/69
[2019-11-28 08:00] VITALS: BP 110/69
[2019-11-28] MEDS: FLUCONAZOLE 200 MG/NS 100 ML 100 ML IV SCH (11:45)
[2019-11-28 12:00] VITALS: BP 117/69
--- NOTE | 2019-11-28 15:50 | NUR ---
RE: RE-EVALUATION OF DRAINAGE TUBE TO BUTTOCK SPOKE TO DR. SANTORO. DR. SANTORO REVIEWED PREVIOUS IMAGING DONE ON 11/25. ORDERED TO CONTINUE FLUSHING PIGTAIL CATHETER WITH 10 CC OF NS Q SHIFT AND PLEASE CONTINUE MONITORING PATIENTS OUTPUT AND RECORD Q SHIFT IN [employer] SYSTEM. KEEP PATIENT NPO FOR CT SCAN OF THE ABDOMEN/PELVIS WITH ORAL CONTRAST ON 12/01/19. PATIET TO RECEIVE ORAL CONTRAST AT 8AM ON 12/01/19. WILL REEVALUATE DRAINAGE TUBE PLACEMENT WITH NEXT CT SCAN ON 12/01/19. CALLED AND INFORMED MACRINA BARAJAS OF ORDERS.
[2019-11-28 20:06] VITALS: BP 119/76
[2019-11-29] VITALS (7 sets, daily range): BP systolic 105–116; BP diastolic 62–70
[2019-11-29] MEDS: ZOSYN 3.375GM+NS 50ML 50 ML IV SCH ×2 (11:45→20:37)
[2019-11-29] MEDS: FLUCONAZOLE 200 MG/NS 100 ML 100 ML IV SCH (11:45)
[2019-11-29] MEDS: FAMOTIDINE 20MG TAB 20 MG TAB PO SCH (20:37)
[2019-11-30] MEDS: ZOSYN 3.375GM+NS 50ML 50 ML IV SCH ×3 (04:13→20:26)
[2019-11-30 04:24] VITALS: BP 108/66
[2019-11-30 06:15] LABS: HEMATOCRIT 35.9 % (42-54); MEAN CORPUSCULAR HEMOGLOBIN 29.1 pg (27.0-33.0); MEAN CORPUSCULAR HGB CONC 32.9 g/dL (32.0-36.0); MEAN CORPUSCULAR VOLUME 88.6 fL (79-99); RED BLOOD CELL COUNT(AUTO) 4.05 MIL/uL (4.50-6.20); WHITE BLOOD COUNT (AUTO) 10.5 K/uL (4.8-10.8)
[2019-11-30 06:34] LABS: CREATININE 1.1 mg/dL (0.5-1.5); POTASSIUM 3.6 mmol/L (3.5-5.1)
[2019-11-30 08:10] VITALS: BP 105/60
[2019-11-30] MEDS: FAMOTIDINE 20MG TAB 20 MG TAB PO SCH ×2 (09:03→20:26)
[2019-11-30 12:00] VITALS: BP 132/76
[2019-11-30 16:00] VITALS: BP 111/70
[2019-11-30] MEDS: FLUCONAZOLE 200 MG/NS 100 ML 100 ML IV SCH (17:25)
[2019-11-30 20:00] VITALS: BP 115/68
[2019-12-01] VITALS: BP 112/69
[2019-12-01 04:00] VITALS: BP 112/67
[2019-12-01] MEDS: ZOSYN 3.375GM+NS 50ML 50 ML IV SCH ×3 (04:29→20:12)
[2019-12-01 05:13] LABS: BASOPHILS % (AUTO) 1.1 % (0.0-5.0); EOSINOPHILS % (AUTO) 2.8 % (0.0-8.0); HEMATOCRIT 35.4 % (42-54); LYMPHOCYTES % (AUTO) 16.9 % (21.0-51.0); MEAN CORPUSCULAR HEMOGLOBIN 29.5 pg (27.0-33.0); MEAN CORPUSCULAR HGB CONC 33.6 g/dL (32.0-36.0); MEAN CORPUSCULAR VOLUME 87.6 fL (79-99); MONOCYTES % (AUTO) 7.5 % (3.0-13.0); NEUTROPHILS % (AUTO) 71.3 % (40.0-77.0); PLATELET COUNT (AUTO) 378 K/uL (130-400); RED BLOOD CELL COUNT(AUTO) 4.04 MIL/uL (4.50-6.20); RED CELL DISTRIBUTION WIDTH 11.8 % (11.0-15.5); WHITE BLOOD COUNT (AUTO) 10.2 K/uL (4.8-10.8)
[2019-12-01 05:35] LABS: ALBUMIN 2.6 g/dL (3.5-5.0); BILIRUBIN,TOTAL 0.3 mg/dL (0.2-1.0); CREATININE 1.1 mg/dL (0.5-1.5); POTASSIUM 3.4 mmol/L (3.5-5.1); TOTAL PROTEIN, SERUM 7.8 g/dL (6.0-8.3)
[2019-12-01 08:00] VITALS: BP 113/65
[2019-12-01] MEDS: FAMOTIDINE 20MG TAB 20 MG TAB PO SCH ×3 (09:00→20:12)
[2019-12-01] MEDS ORDERED: POTASSIUM CHLORIDE 20 MEQ ERTAB PO PRN (09:15)
[2019-12-01] MEDS ORDERED: LIDOCAINE HCL-MPF 1% 2ML VIAL IV PRN ×2 (09:15)
[2019-12-01] MEDS ORDERED: POTASSIUM CHLORIDE 20MEQ/100ML 100 ML IV PRN ×2 (09:15)
[2019-12-01] MEDS ORDERED: POTASSIUM CHLORIDE 10% ELIXIR 20 MEQ/15 ML UDCUP PO PRN (09:15)
[2019-12-01 12:00] VITALS: BP 112/67
[2019-12-01] MEDS: FLUCONAZOLE 200 MG/NS 100 ML 100 ML IV SCH (12:30)
[2019-12-01] MEDS ORDERED: IOHEXOL-350 75 ML VIAL IV ONE (13:06)
[2019-12-01 16:00] VITALS: BP 113/74
--- NOTE | 2019-12-01 16:58 | NUR ---
POSS DC PLAN- [facility] FOR ABX, REPEAT IR PROCEDURE OUT PATIENT ADVISED THAT FOLLOW UP AFTER CARE HAS BEEN TENTATIVELY APPROVED POSSIBLE C FOR WBX, POSS REPEAT IR PROCEDURE. WILL FOLLOW UP IN AM AFTER REPEAT CT SCAN Addendum: 12/01/19 at 1700 by FLORA NGUYEN RN CM Amended: Links added.
[2019-12-01] MEDS: POTASSIUM CHLORIDE 20 MEQ ERTAB PO PRN ×2 (17:44→19:41)
[2019-12-01 20:00] VITALS: BP 114/71
--- NOTE | 2019-12-01 21:00 | NUR ---
DRAIN Flushed drain with 10 cc Ns fast and hard,no difficulty noted.
[2019-12-02] VITALS: BP 109/64
--- NOTE | 2019-12-02 03:12 | NUR ---
SHOWER Pt took a shower today.Pigtail catheter covered with plastic.
[2019-12-02] MEDS: HYDROCODONE/ACETAMINOPHEN 5/325 MG TAB PO PRN (03:56)
--- NOTE | 2019-12-02 03:57 | NUR ---
YASSINE REMOVED Explained procedure to pt in [place] per Evaristo Mcclain,8 yassine removed from abdominal incision,porsha well.Incision cleansed with betadine swab,no redness,no drainage noted.Pt medicated with Lortab for c/o of mild pain. Addendum: 12/02/19 at 0402 by DEBORA GIBBS RN RN Amended: Links added.
[2019-12-02 04:00] VITALS: BP 121/74
[2019-12-02] MEDS: ZOSYN 3.375GM+NS 50ML 50 ML IV SCH ×3 (04:05→19:59)
[2019-12-02 05:30] LABS: BASOPHILS % (AUTO) 1.1 % (0.0-5.0); HEMATOCRIT 33.3 % (42-54); LYMPHOCYTES % (AUTO) 18.6 % (21.0-51.0); MEAN CORPUSCULAR HEMOGLOBIN 29.2 pg (27.0-33.0); MEAN CORPUSCULAR VOLUME 88.3 fL (79-99); MONOCYTES % (AUTO) 8.4 % (3.0-13.0); NEUTROPHILS % (AUTO) 68.4 % (40.0-77.0); PLATELET COUNT (AUTO) 355 K/uL (130-400); RED BLOOD CELL COUNT(AUTO) 3.77 MIL/uL (4.50-6.20); RED CELL DISTRIBUTION WIDTH 11.8 % (11.0-15.5); WHITE BLOOD COUNT (AUTO) 8.8 K/uL (4.8-10.8)
[2019-12-02 05:35] LABS: ALBUMIN 2.5 g/dL (3.5-5.0); BILIRUBIN,TOTAL 0.2 mg/dL (0.2-1.0); CREATININE 1.1 mg/dL (0.5-1.5); POTASSIUM 3.8 mmol/L (3.5-5.1); TOTAL PROTEIN, SERUM 7.4 g/dL (6.0-8.3)
--- NOTE | 2019-12-02 07:01 | NUR ---
drain pigtail drained 10 ml.
[2019-12-02 08:00] VITALS: BP 99/50
[2019-12-02] MEDS: FAMOTIDINE 20MG TAB 20 MG TAB PO SCH ×2 (10:30→19:59)
--- NOTE | 2019-12-02 11:09 | NUR ---
PLAN: NO IV ABX AT DISCHARGE. PER DR. GOETZ
[2019-12-02 11:34] VITALS: BP 113/63
[2019-12-02] MEDS: FLUCONAZOLE 200 MG/NS 100 ML 100 ML IV SCH (11:49)
[2019-12-02 16:00] VITALS: BP 111/64
[2019-12-02 20:22] VITALS: BP 119/73
[2019-12-03 00:01] VITALS: BP 113/63
[2019-12-03] MEDS: ZOSYN 3.375GM+NS 50ML 50 ML IV SCH ×3 (03:46→21:53)
--- NOTE | 2019-12-03 03:49 | NUR ---
CT Pt remains afebrile,drain to rt pelvic area connected to accordion drain remains with scant amount of yellowish drainage.Flushed with 10 cc Ns fast and hard,porsha well.Pt is for repeat CT scan without contrast today.Pt denies pain or disomfort.
[2019-12-03 03:53] LABS: BASOPHILS % (AUTO) 1.6 % (0.0-5.0); EOSINOPHILS % (AUTO) 4.4 % (0.0-8.0); HEMATOCRIT 34.1 % (42-54); LYMPHOCYTES % (AUTO) 25.8 % (21.0-51.0); MEAN CORPUSCULAR HEMOGLOBIN 29.1 pg (27.0-33.0); MEAN CORPUSCULAR HGB CONC 32.6 g/dL (32.0-36.0); MEAN CORPUSCULAR VOLUME 89.5 fL (79-99); MONOCYTES % (AUTO) 9.5 % (3.0-13.0); NEUTROPHILS % (AUTO) 58.4 % (40.0-77.0); PLATELET COUNT (AUTO) 343 K/uL (130-400); RED BLOOD CELL COUNT(AUTO) 3.81 MIL/uL (4.50-6.20); RED CELL DISTRIBUTION WIDTH 12.1 % (11.0-15.5); WHITE BLOOD COUNT (AUTO) 6.4 K/uL (4.8-10.8)
[2019-12-03 03:59] VITALS: BP 114/69
[2019-12-03 04:16] LABS: ALBUMIN 2.6 g/dL (3.5-5.0); BILIRUBIN,TOTAL 0.2 mg/dL (0.2-1.0); POTASSIUM 3.5 mmol/L (3.5-5.1); TOTAL PROTEIN, SERUM 7.4 g/dL (6.0-8.3)
--- NOTE | 2019-12-03 05:37 | NUR ---
DRAIN Accordion drain had 20 ml yellowish fluid,recorded on I and O's.
[2019-12-03] MEDS: POTASSIUM CHLORIDE 20 MEQ ERTAB PO PRN ×2 (05:44→21:52)
[2019-12-03 08:29] VITALS: BP 104/60
[2019-12-03] MEDS: FAMOTIDINE 20MG TAB 20 MG TAB PO SCH ×2 (08:46→21:52)
[2019-12-03] MEDS: FLUCONAZOLE 200 MG/NS 100 ML 100 ML IV SCH (11:58)
[2019-12-03 14:47] VITALS: BP 109/57
--- NOTE | 2019-12-03 16:50 | NUR ---
CT ORDER FROM LASHAY MORFIN FOR DR. PRESTON NEEDS TO BE SENT TO CENTRAL SCHEDULING. ADVISED TIFFANIE CHARGE- STATES WILL FOLLOW UP. THIS OUT PATIENT CT SCAN HAS BEEN APPROVED BY ADMIN AND NEEDS TO BE TAGGED FOR SCHEDULED
[2019-12-03 18:54] VITALS: BP 114/56
[2019-12-03 19:53] VITALS: BP 125/76
[2019-12-04 00:12] VITALS: BP 123/85
[2019-12-04 03:52] VITALS: BP 111/59
[2019-12-04] MEDS: ZOSYN 3.375GM+NS 50ML 50 ML IV SCH ×2 (04:43→11:45)
[2019-12-04 08:00] VITALS: BP 102/57
--- NOTE | 2019-12-04 08:00 | NUR ---
LUCY ROUNDED ON PATIENT
[2019-12-04] MEDS: FAMOTIDINE 20MG TAB 20 MG TAB PO SCH (08:45)
[2019-12-04 11:55] VITALS: BP 108/62
[2019-12-04] MEDS: FLUCONAZOLE 200 MG/NS 100 ML 100 ML IV SCH (12:06)
[2019-12-04 16:00] VITALS: BP 103/55
--- NOTE | 2019-12-04 19:20 | NUR ---
PATIENT GIVEN DISCHARGE INSTRUCTION BY CHARGE NURSE ( PATIENT SLOVENIAN SPEAKING ONLY). INSTRUCTED ON FOLLOW-UP APPOINTMENTS AND CT SCAN ON 12/10/19 AT [facility], EDICATIONS REVIEWED AND PRESCRIPTIONS GIVEN. IV REMOVED WITH CATHETER INTACT AND SITE DRESSED, NO QUESTIONS OR CONCERNS AT THIS TIME WAITING FOR RIDE HOME
== END 2019-12-04 20:26 | disposition home or self-care (01) | DRG 853 ==
LOC: EDH 22:25 → EDHIP 22:26 → 3CH 11-09 00:04 → 3DH 11-22 01:20
PROVIDERS: ADMIT Surgery; ATTEND Surgery
PROC: 0W9J30Z Drainage of Pelvic Cavity with Drainage Device, Percutaneous Approach (ICD-10-PCS; 2019-11-09)
PROC: 0DTJ4ZZ Resection of Appendix, Percutaneous Endoscopic Approach (ICD-10-PCS; principal; 2019-11-09 09:40)
DX: A41.51 Sepsis due to Escherichia coli [E. coli] (principal); K35.33 Acute appendicitis with perforation, localized peritonitis, and gangrene, with abscess; K56.41 Fecal impaction; B96.20 Unspecified Escherichia coli [E. coli] as the cause of diseases classified elsewhere; H40.9 Unspecified glaucoma; Z20.828 Contact with and (suspected) exposure to other viral communicable diseases
CPT/HCPCS: 36415; 71045; 71046; 72192; 74176; 74177; 75989; 77012; 80048; 80053; 80074; 80202; 80305; 81001; 83605; 83690; 84145; 85025; 85027; 85610; 85730; 87040; 87071; 87077; 87186; 87205; 87426; 88304; 93005; 94640; 94664; 99152; 99153; A4344; G0378; J0330; J0692; J1450; J1885; J2001; J2250; J2270; J2405; J2543; J2704; J2710; J3010; J3370; J3480; J3490; J7030; J7040; J7050; J7120; Q9963; Q9967; U0003